=== PATIENT | female | born 1950 | race Caucasian/White ===

== ENCOUNTER 2022-05-17 17:11 | Inpatient (IN) | payer MEDICARE, OTHER ==
[~2022-05-17] VITALS: Ht 154.9 cm; Wt 73.5 kg
[2022-05-17] MEDS ORDERED: IV NS 0.9% 1,000 ML BAG IV ONE (19:30)
[2022-05-17] MEDS ORDERED: PROCHLORPERAZINE EDISYLATE 10 MG/2 ML VIAL IVP ONE (19:30)
[2022-05-17] MEDS ORDERED: MORPHINE SULFATE INJ 2 MG/ML DISP.SYRIN IV ONE (19:30)
[2022-05-17] MEDS ORDERED: diphenhydrAMINE HCL 50 MG/ML VIAL IV ONE (19:30)
--- NOTE | 2022-05-17 19:30 | NUR ---
ASSUMED CARE. PT BIBRA C/O HEADACHE X 3 DAYS. PT AAOX4 BREATHING EVENLY AND UNLABORED. PT ATTACHED TO MONITOR AND POX. SKIN WARM AND DRY. FAMILY AT BEDSIDE FOR PASHTO TRANSLATION.
--- NOTE | 2022-05-17 19:38 | NUR ---
PT TAKEN TO CT VIA [facility]
[2022-05-17] MEDS ORDERED: diphenhydrAMINE HCL 50 MG/ML VIAL ONE (19:56)
[2022-05-17] MEDS ORDERED: MORPHINE SULFATE INJ 2 MG/ML DISP.SYRIN ONE (19:56)
[2022-05-17] MEDS ORDERED: PROCHLORPERAZINE EDISYLATE 10 MG/2 ML VIAL ONE (19:56)
--- NOTE | 2022-05-17 19:56 | NUR ---
PT RETURNED TO ER BED [address]
--- NOTE | 2022-05-17 20:16 | NUR ---
PT WALKED TO RESTROOM. NEEDS MET
--- NOTE | 2022-05-17 20:27 | NUR ---
RFA #18G S/L BLOOD COLLECTED AND SENT TO LAB
[2022-05-17 20:51] LABS: CALCIUM, SERUM 9.4 mg/dL (8.5-10.1); CARBON DIOXIDE 28 mmol/L (21-32); CHLORIDE 97 mmol/L (98-107); CREATININE 0.6 mg/dL (0.6-1.3); GLUCOSE 141 mg/dL (74-106); POTASSIUM 3.5 mmol/L (3.5-5.1); SODIUM SERUM 132 mmol/L (136-145); UREA NITROGEN, BLOOD 9 mg/dL (7-18)
[2022-05-17 21:23] LABS: BASOPHILS % (AUTO) 0.3 % (0.0-2.0); EOSINOPHILS % (AUTO) 0.2 % (0.0-6.0); HEMATOCRIT 43 % (33-45); HEMOGLOBIN 14.2 g/dL (11.5-14.8); LYMPHOCYTES # (AUTO) 1.8 K/uL (0.8-4.8); LYMPHOCYTES % (AUTO) 14.7 % (20.0-44.0); MEAN CORPUSCULAR HGB CONC 33 g/dl (31.0-36.0); MEAN CORPUSCULAR VOLUME 90 fL (82-100); MONOCYTES # (AUTO) 0.5 K/uL (0.1-1.30); MONOCYTES % (AUTO) 4.2 % (2.0-12.0); NEUTROPHILS # (AUTO) 9.9 K/uL (1.8-8.9); NEUTROPHILS % (AUTO) 80.6 % (43.0-81.0); PLATELET COUNT (AUTO) 239 K/uL (150-450); RED BLOOD CELL COUNT(AUTO) 4.83 MIL/uL (4.0-5.2); WHITE BLOOD COUNT (AUTO) 12.3 K/uL (4.3-11.0)
[2022-05-17] MEDS ORDERED: KETOROLAC TROMETHAMINE 15 MG/ML VIAL ONE (22:23)
[2022-05-17] MEDS ORDERED: CLONIDINE HCL 0.1 MG TABLET ONE (22:23)
[2022-05-17] MEDS ORDERED: KETOROLAC TROMETHAMINE INJ 30 MG/ML VIAL IV ONE (22:30)
[2022-05-17] MEDS ORDERED: CLONIDINE HCL 0.1 MG TABLET PO ONE (22:30)
[2022-05-18] MEDS ORDERED: ACETAMINOPHEN 325 MG TABLET PO PRN (01:00)
[2022-05-18] MEDS ORDERED: HYDROCODONE/APAP 5/325MG TABLET PO PRN (01:00)
[2022-05-18] MEDS ORDERED: ONDANSETRON HCL/PF 4 MG/2 ML VIAL IVP PRN (01:00)
[2022-05-18] MEDS ORDERED: MAGNESIUM HYDROXIDE 30 ML UDC PO PRN (01:00)
[2022-05-18] MEDS ORDERED: TEMAZEPAM 15 MG CAPSULE PO PRN (01:00)
[2022-05-18] MEDS ORDERED: MORPHINE SULFATE INJ 2 MG/ML DISP.SYRIN IV PRN (01:00)
[2022-05-18] MEDS ORDERED: Z GUARD REMEDY 4 OZ OINT TP PRN (01:00)
[2022-05-18] MEDS ORDERED: MAG HYDROX/AL HYDROX/SIMETH 30 ML UDC PO PRN (01:00)
[2022-05-18] MEDS ORDERED: NITROGLYCERIN 0.4 MG/TAB BOTTLE SL PRN (01:00)
--- NOTE | 2022-05-18 02:12 | NUR ---
TELE: 312-2
--- NOTE | 2022-05-18 02:27 | NUR ---
REPORT GIVEN TO JENNA HO
--- NOTE | 2022-05-18 02:39 | NUR ---
JEREMY JOHNSON [phone]. PLS GIVE UPDATE ON PATIENTS STATUS. CALL ANYTIME
--- NOTE | 2022-05-18 02:45 | NUR ---
RN RECEIVING NOTE FROM ER PATIENT ARRIVED TO UNIT VIA GURNEY FROM ER - STABLE. A/OX4. NO S/S OF DISTRESS, BREATHING WITHOUT DIFFICULTY ON ROOM AIR. RFA #18 SL INTACT AND PATENT. TELE READS SR 74. SAFETY MEASURES IN PLACE: BED LOCKED AND AT LOWEST POSITION, RAILS UP X2, CALL COATES WITHIN REACH. PATIENT WAS ORIENTED TO THE UNIT. PATIENT GIVEN CALL COATES AND INSTRUCTED ON ITS USE. BELONGINGS ACCOUNTED FOR, LOGGED INTO SHEET, AND PLACED IN SHEET. TELE MONITOR APPLIED. PATIENT'S DAUGHTER ON PHONE TO AID IN COMMUNICATION. ALL QUESTIONS AND CONCERNS ADDRESSED. PATIENT STABLE; WILL CONTINUE TO MONITOR PATIENT.
--- NOTE | 2022-05-18 02:49 | NUR ---
TRANSFERRED PT TO ROOM.
[2022-05-18 04:00] VITALS: BP 130/78
[2022-05-18 04:25] VITALS: BP 130/78
--- NOTE | 2022-05-18 07:00 | NUR ---
RN OPENING NOTE PATIENT ASLEEP IN BED. A/OX4. NO S/S OF DISTRESS, BREATHING WITHOUT DIFFICULTY ON ROOM AIR. RFA #18 SL INTACT AND PATENT. TELE READS SR 75. SAFETY MEASURES IN PLACE: BED LOCKED AND IN PLACE, RAILS UP X2, CALL COATES WITHIN REACH. WILL ENDORSE TO NEXT SHIFT FOR ABY. Addendum: 05/18/22 at 0701 by GEOR[place]IA CHOPRA RN CORRECTION: RN CLOSING NOTE
--- NOTE | 2022-05-18 07:20 | NUR ---
PROPERTY SITE MANAGER OPENING NOTES RECEIVED PATIENT IN BED AWAKE, A/O X4. ABLE TO MAKE NEEDS KNOWN, NO C/O OF PAIN OR ANY DISCOMFORTS VOICED AT THIS TIME. ON ROOM AIR, TOLERATING WELL, BREATHING EVEN AND UNLABORED, NO ACUTE DISTRESS NOTED. ON TELE-MONITOR WITH CURRENT READING OF NSR, HR 76, NO C/O CARDIAC DISTRESS NOTED AT THIS TIME. SAFETY PRECAUTIONS IN PLACE: BED IN LOWEST LOCKED POSITION WITH SR UP X2, CALL LIGHT W/IN REACH. WILL CONTINUE TO MONITOR PT ACCORDINGLY.
[2022-05-18] MEDS: PANTOPRAZOLE 40 MG TABLET.DR PO SCH (07:40)
[2022-05-18 08:00] VITALS: BP 114/60
[2022-05-18] MEDS: ASPIRIN 81 MG TAB.CHEW PO SCH (08:23)
[2022-05-18] MEDS: ENOXAPARIN SODIUM 40 MG/0.4 ML DISP.SYRIN SQ SCH (08:23)
[2022-05-18] MEDS ORDERED: METF-440 PO (08:33)
[2022-05-18] MEDS ORDERED: AMLO-213 PO (08:33)
[2022-05-18] MEDS ORDERED: HYDR25TA4 PO (08:33)
[2022-05-18] MEDS ORDERED: DAPA10TA PO (08:33)
[2022-05-18] MEDS ORDERED: LIPA1CAP15 PO (08:33)
[2022-05-18] MEDS ORDERED: OMEP20CA15 PO (08:33)
[2022-05-18] MEDS ORDERED: TRAZ-252 PO (08:33)
[2022-05-18] MEDS ORDERED: PARO20TA7 PO (08:33)
[2022-05-18] MEDS ORDERED: GLIM2TAB31 PO (08:33)
[2022-05-18] MEDS ORDERED: LINA290C PO (08:33)
[2022-05-18] MEDS ORDERED: FOLI-140 PO (08:33)
[2022-05-18] MEDS ORDERED: ASPI-1420 PO (08:33)
[2022-05-18] MEDS ORDERED: ROSU10TA29 PO (08:33)
[2022-05-18] MEDS ORDERED: HYDR-4077 PO (08:33)
[2022-05-18] MEDS ORDERED: BENA40TA8 PO (08:33)
[2022-05-18 09:02] LABS: BASOPHILS % (AUTO) 0.2 % (0.0-2.0); EOSINOPHILS % (AUTO) 1.6 % (0.0-6.0); HEMATOCRIT 39 % (33-45); HEMOGLOBIN 12.7 g/dL (11.5-14.8); LYMPHOCYTES % (AUTO) 24.2 % (20.0-44.0); MEAN CORPUSCULAR HGB CONC 33 g/dl (31.0-36.0); MEAN CORPUSCULAR VOLUME 90 fL (82-100); MONOCYTES # (AUTO) 0.7 K/uL (0.1-1.30); MONOCYTES % (AUTO) 8.2 % (2.0-12.0); NEUTROPHILS # (AUTO) 5.3 K/uL (1.8-8.9); NEUTROPHILS % (AUTO) 65.8 % (43.0-81.0); PLATELET COUNT (AUTO) 225 K/uL (150-450); RED BLOOD CELL COUNT(AUTO) 4.32 MIL/uL (4.0-5.2); WHITE BLOOD COUNT (AUTO) 8.1 K/uL (4.3-11.0)
[2022-05-18 09:37] LABS: THYROID STIMULATING HORMONE 2.061 uIU/mL (0.358-3.74)
[2022-05-18 11:25] LABS: CREATININE 0.6 mg/dL (0.6-1.3); PHOSPHORUS 4.3 mg/dL (2.5-4.9); POTASSIUM 3.7 mmol/L (3.5-5.1)
[2022-05-18] MEDS: hydrALAZINE HCL 50 MG TABLET PO SCH ×2 (12:56→16:08)
[2022-05-18] MEDS ORDERED: DEXTROSE 50%-WATER 50 ML DISP.SYRIN IV PRN (15:30)
--- NOTE | 2022-05-18 15:30 | NUR ---
RN NOTES INFORMED WOOD DRILLING MACHINE OPERATOR WOLFGANG ABOUT PT'S HIGH HA1C 6.2 TODAY WITH ORDER TO DO ACCUCHECK ACHS WITH MILD SLIDING SCALE.
[2022-05-18 16:00] VITALS: BP 119/64
[2022-05-18 16:59] LABS: BILIRUBIN,URINE NEGATIVE (NEGATIVE); COLOR,URINE YELLOW (YELLOW); LEUKOCYTE ESTERASE ,URINE 2+ (NEGATIVE); NITRITE, URINE NEGATIVE (NEGATIVE); PROTEIN,URINE NEGATIVE (NEGATIVE); UGLUCOSE NEGATIVE (NEGATIVE); UROBILINOGEN,URINE 0.2 EU/dL (0.2)
[2022-05-18] MEDS: INSULIN REGULAR, HUMAN 100 UNIT/ML 3 ML VIAL SQ PRN ×2 (17:09→22:40)
[2022-05-18] MEDS: BLOOD SUGAR DIAGNOSTIC 1 EACH STRIP IN SCH ×2 (17:10→22:40)
[2022-05-18] MEDS: ATORVASTATIN 10 MG TABLET PO SCH (17:33)
[2022-05-18] MEDS: TRAZODONE 50 MG TABLET PO SCH (17:33)
--- NOTE | 2022-05-18 18:38 | NUR ---
DRAW PRESS OPERATOR CLOSING NOTES PATIENT RESTING IN BED AT THIS TIME. A/O X4. GEORGIAN AND OMANI SPEAKING, UNDERSTANDS SOME PERUVIAN. AMBULATORY WITH STEADY GAIT. ON ROOM AIR, TOLERATING WELL, BREATHING EVEN AND UNLABORED, NO ACUTE DISTRESS NOTED DURING SHIFT. ON TELE-MONITOR WITH CURRENT READING OF NSR, HR 94, NO C/O CARDIAC DISTRESS VOICED. IV ACCESS ON RFA G#18 INTACT, PATENT AND SL. ALL NEEDS AND CARE ATTENDED WELL. SAFETY PRECAUTIONS IN PLACE: BED IN LOWEST LOCKED POSITION WITH SR UP X2, TRAY TABLE AND CALL LIGHT W/IN REACH OF PT. WILL ENDORSED ABY TO RN CLINICAL TRIALS NURSE.
--- NOTE | 2022-05-18 19:50 | NUR ---
INFRASTRUCTURE TECHNICIAN OPENING NOTE PATIENT SLEEPING IN BED, EASILY AWAKENED, PATIENT ALERT/ORIENTED X 3, PRIMARILY IVORIAN SPEAKING BUT ABLE TO SPEAK SOME BULGARIAN. PT STABLE ON RA, NO S/S OF DISTRESS OR SOB NOTED, BREATHING EVEN AND UNLABORED. PATIENT ON EXTERNAL CREDIT RISK ANALYTICS MANAGER READING SINUS RHYTHM, HR: 85. IV ACCESS ON RFA #18G INTACT AND SALINE LOCKED. PER DAYSHIFT RN PATIENT IS AMBULATORY WITH STEADY GAIT, HAS BRP. SAFETY MEASURES IN PLACE: CALL LIGHT WITHIN REACH, SIDE RAILS UP X 2, BED LOCKED IN LOWEST POSITION, BED ALARM ON. WILL CONTINUE TO MONITOR PATIENT
[2022-05-18] MEDS: METOPROLOL TARTRATE 25 MG TABLET PO SCH (20:51)
[2022-05-18 21:04] LABS: BACTERIA,URINE 2+ /HPF (None Seen); RBC,URINE 0-2 /HPF (0-2); SQUAMOUS EPITHELIAL CELL,UR 0-2 /HPF (None Seen); WBC,URINE 21-50 /HPF (0-3)
[2022-05-19] VITALS: BP 115/50
[2022-05-19 04:00] VITALS: BP 97/47
[2022-05-19 06:22] LABS: BASOPHILS % (AUTO) 0.3 % (0.0-2.0); EOSINOPHILS % (AUTO) 1.9 % (0.0-6.0); HEMATOCRIT 37 % (33-45); HEMOGLOBIN 12.3 g/dL (11.5-14.8); LYMPHOCYTES # (AUTO) 1.8 K/uL (0.8-4.8); LYMPHOCYTES % (AUTO) 26.5 % (20.0-44.0); MEAN CORPUSCULAR HGB CONC 34 g/dl (31.0-36.0); MEAN CORPUSCULAR VOLUME 90 fL (82-100); MONOCYTES # (AUTO) 0.6 K/uL (0.1-1.30); MONOCYTES % (AUTO) 8.4 % (2.0-12.0); NEUTROPHILS # (AUTO) 4.3 K/uL (1.8-8.9); NEUTROPHILS % (AUTO) 62.9 % (43.0-81.0); PLATELET COUNT (AUTO) 218 K/uL (150-450); RED BLOOD CELL COUNT(AUTO) 4.07 MIL/uL (4.0-5.2); WHITE BLOOD COUNT (AUTO) 6.8 K/uL (4.3-11.0)
[2022-05-19 06:49] LABS: CALCIUM, SERUM 8.9 mg/dL (8.5-10.1); CREATININE 0.7 mg/dL (0.6-1.3); PHOSPHORUS 3.7 mg/dL (2.5-4.9); POTASSIUM 3.7 mmol/L (3.5-5.1)
--- NOTE | 2022-05-19 06:56 | NUR ---
PARTY PLAN SALES UNIT ADVISOR OPENING NOTE PATIENT AWAKE IN BED, PATIENT ALERT/ORIENTED X 3, PRIMARILY MALAGASY SPEAKING BUT ABLE TO SPEAK SOME [place]UWAITI. PT STABLE ON RA, NO S/S OF DISTRESS OR SOB NOTED, BREATHING EVEN AND UNLABORED. PATIENT ON EXTERNAL FIRST AID ATTENDANT READING SINUS RHYTHM, HR: 78. IV ACCESS ON RFA #18G INTACT AND SALINE LOCKED. PATIENT IS AMBULATORY WITH STEADY GAIT, HAS BRP. MEDICATIONS GIVEN ORDERED, PT NEEDS MET THROUGHOUT SHIFT. PATIENT FOR CTA HEART WITH 3D IMAGES TODAY, EXPLAINED BY DR. HANNAH LAST NIGHT WITH DAUGHTER JANESSA AT BEDSIDE, CONSENT SIGNED. SAFETY MEASURES IN PLACE: CALL LIGHT WITHIN REACH, SIDE RAILS UP X 2, BED LOCKED IN LOWEST POSITION, BED ALARM ON. [facility] FOR CONTINUITY OF CARE Addendum: 05/19/22 at 0657 by REESE BAR RN PARTY PLAN SALES UNIT ADVISOR CLOSING NOTE
[2022-05-19 07:00] VITALS: BP 127/74
[2022-05-19 07:00] LABS: THYROID STIMULATING HORMONE 1.243 uIU/mL (0.358-3.74)
[2022-05-19] MEDS: BLOOD SUGAR DIAGNOSTIC 1 EACH STRIP IN SCH ×4 (07:09→21:27)
[2022-05-19] MEDS: INSULIN REGULAR, HUMAN 100 UNIT/ML 3 ML VIAL SQ PRN ×4 (07:09→21:33)
--- NOTE | 2022-05-19 07:20 | NUR ---
AIRCRAFT POWERPLANT REPAIRER OPENING NOTES RECEIVED PATIENT SITTING AT SIDE OF HER BED. A/O X4. ABLE TO MAKE NEEDS KNOWN, DENIES PAIN OR ANY DISCOMFORTS VOICED AT THIS TIME. ON ROOM AIR, TOLERATING WELL, BREATHING EVEN AND UNLABORED, NO ACUTE DISTRESS NOTED. ON TELE-MONITOR WITH CURRENT READING OF NSR, HR 77, NO C/O CARDIAC DISTRESS NOTED AT THIS TIME. IV SALINE LOCKED ON RFA INTACT, PATENT AND FLUSHES WELL. SAFETY PRECAUTIONS IN PLACE: BED IN LOWEST LOCKED POSITION WITH SR UP X2, CALL LIGHT W/IN REACH. WILL CONTINUE TO MONITOR PT
[2022-05-19] MEDS: PANTOPRAZOLE 40 MG TABLET.DR PO SCH (07:21)
[2022-05-19] MEDS: AMLODIPINE BESYLATE 10 MG TABLET PO SCH (09:00)
[2022-05-19] MEDS: HYDROCHLOROTHIAZIDE 25 MG TABLET PO SCH (09:00)
[2022-05-19] MEDS: hydrALAZINE HCL 50 MG TABLET PO SCH ×3 (09:00→16:43)
[2022-05-19] MEDS: ASPIRIN 81 MG TAB.CHEW PO SCH (09:02)
[2022-05-19] MEDS: BENAZEPRIL HCL 20 MG TABLET PO SCH (09:02)
[2022-05-19] MEDS: PAROXETINE HCL 20 MG TABLET PO SCH (09:03)
[2022-05-19] MEDS: METOPROLOL TARTRATE 25 MG TABLET PO SCH ×2 (09:03→21:27)
[2022-05-19] MEDS: FOLIC ACID 1 MG TABLET PO SCH (09:03)
[2022-05-19] MEDS: ENOXAPARIN SODIUM 40 MG/0.4 ML DISP.SYRIN SQ SCH (09:10)
[2022-05-19] MEDS ORDERED: IV NS 0.9% 250 ML IV ONE ×2 (11:28→12:13)
[2022-05-19] MEDS ORDERED: CT SWABBABLE VALVE TRANS SET 1 EA INFUS.SET MC ONE (11:28)
[2022-05-19] MEDS ORDERED: IOHEXOL-350 100 ML VIAL IV ONE ×2 (11:28→12:13)
--- NOTE | 2022-05-19 11:33 | NUR ---
RN NOTES PT PICKED-UP FOR [facility] VIA WHEELCHAIR
[2022-05-19] MEDS: METOPROLOL TARTRATE INJ 5 MG/5 ML AMPUL IVP PRN ×10 (11:35→12:20)
[2022-05-19] MEDS ORDERED: METOPROLOL TARTRATE INJ 5 MG/5 ML AMPUL ONE ×3 (11:45→12:12)
[2022-05-19 12:00] VITALS: BP 104/63
[2022-05-19] MEDS ORDERED: NITROGLYCERIN 0.4 MG/TAB BOTTLE SL ONE (12:00)
--- NOTE | 2022-05-19 14:45 | NUR ---
RN NOTES PT RETURNED FROM [facility] VIA WHEELCHAIR. IV ACCESS ON RFA G#[address] ROOM. PT NOTED WITH NEW IV ACCESS ON LFA G#18 INTACT, PATENT AND FLUSHES WELL.
[2022-05-19] MEDS: ATORVASTATIN 10 MG TABLET PO SCH (17:09)
[2022-05-19] MEDS: TRAZODONE 50 MG TABLET PO SCH ×3 (17:09→17:35)
--- NOTE | 2022-05-19 17:14 | NUR ---
RN NOTES TRAZADONE 50MG TAB WASTED. MED WAS ALREADY OPENED AND PT SUDDENLY REFUSED THE MEDICATIONS STATED THAT IT MADE HER VERY SLEEPY.
--- NOTE | 2022-05-19 18:43 | NUR ---
TRAP SETTER CLOSING NOTES PATIENT IN BED AWAKE AND RESTING AT MODERATE HIGH BACKREST POSITION. A/O X4. TELUGU AND SAUDI ARABIAN SPEAKING, UNDERSTANDS SOME KITTITIAN. AMBULATORY WITH STEADY GAIT. TOLERATING ROOM AIR WELL, BREATHING EVEN AND UNLABORED, NO ACUTE DISTRESS NOTED DURING SHIFT. ON TELE-MONITOR WITH CURRENT READING OF NSR, HR 70, NO C/O CARDIAC DISTRESS VOICED. IV ACCESS ON LFA G#18 INTACT, PATENT AND SL. ALL NEEDS AND CARE ATTENDED WELL. SAFETY PRECAUTIONS IN PLACE: BED IN LOWEST LOCKED POSITION WITH SR UP X2, TRAY TABLE AND CALL LIGHT W/IN REACH OF PT. WILL ENDORSED ABY TO COMPANY TRUCK DRIVER NURSE.
--- NOTE | 2022-05-19 20:32 | NUR ---
CHEMIST INTER[employer]IP OPENING NOTES PATIENT IN BED AWAKE AND RESTING AT MODERATE HIGH BACKREST POSITION. A/O X4. ARABIC AND MALDIVIAN SPEAKING, UNDERSTANDS SOME UGANDAN. AMBULATORY WITH STEADY GAIT. TOLERATING ROOM AIR WELL, BREATHING EVEN AND UNLABORED, NO ACUTE DISTRESS NOTED DURING SHIFT. ON TELE-MONITOR WITH CURRENT READING OF NSR, HR 70, NO C/O CARDIAC DISTRESS VOICED. IV ACCESS ON LFA G#18 INTACT, PATENT AND SL. ALL NEEDS AND CARE ATTENDED WELL. SAFETY PRECAUTIONS IN PLACE: BED IN LOWEST LOCKED POSITION WITH SR UP X2, TRAY TABLE AND CALL LIGHT W/IN REACH OF PT.
[2022-05-20 00:02] VITALS: BP 124/60
[2022-05-20 04:13] VITALS: BP 128/68
--- NOTE | 2022-05-20 06:46 | NUR ---
FOREST FIRE MANAGEMENT OFFICER CLOSING NOTES PATIENT IN BED AWAKE AND RESTING A/O X4. YI AND MONTSERRATIAN SPEAKING, UNDERSTANDS SOME MACEDONIAN. AMBULATORY WITH STEADY GAIT. TOLERATING ROOM AIR WELL, BREATHING EVEN AND UNLABORED, NO ACUTE DISTRESS NOTED DURING SHIFT. ON TELE-MONITOR WITH CURRENT READING OF NSR NO C/O CARDIAC DISTRESS VOICED. IV ACCESS ON LFA G#18 INTACT, PATENT AND SL. ALL NEEDS AND CARE ATTENDED WELL. SAFETY PRECAUTIONS IN PLACE: BED IN LOWEST LOCKED POSITION WITH SR UP X2, TRAY TABLE AND CALL LIGHT W/IN REACH OF PT. WILL ENDORSE CARE TO DAY SHIFT NURSE.
--- NOTE | 2022-05-20 06:57 | NUR ---
TILE LAYER CLOSING NOTE PATIENT IN BED AWAKE AND RESTING A/O X4. ARABIC AND NIUEAN SPEAKING, UNDERSTANDS SOME NEPALI. AMBULATORY WITH STEADY GAIT. TOLERATING ROOM AIR WELL, BREATHING EVEN AND UNLABORED, NO ACUTE DISTRESS NOTED DURING SHIFT. ON TELE-MONITOR WITH CURRENT READING OF NSR NO C/O CARDIAC DISTRESS VOICED. IV ACCESS ON LFA G#18 INTACT, PATENT AND SL. ALL NEEDS AND CARE ATTENDED WELL. SAFETY PRECAUTIONS IN PLACE: BED IN LOWEST LOCKED POSITION WITH SR UP X2, TRAY TABLE AND CALL LIGHT W/IN REACH OF PT. WILL ENDORSE CARE TO DAY SHIFT NURSE.
--- NOTE | 2022-05-20 07:15 | NUR ---
MSRN Received patient in bed, alert oriented x4. Not in any form of distress. Respirations unlabored. abdomen soft, positive bowel sounds. Denies pain. To be discharged today. Will monitor patients condition. Call light within reach. All needs attended.
[2022-05-20] MEDS: BLOOD SUGAR DIAGNOSTIC 1 EACH STRIP IN SCH ×2 (07:24→13:08)
[2022-05-20] MEDS: PANTOPRAZOLE 40 MG TABLET.DR PO SCH (07:50)
[2022-05-20 08:00] VITALS: BP 133/66
[2022-05-20] MEDS: hydrALAZINE HCL 50 MG TABLET PO SCH ×2 (08:34→13:00)
[2022-05-20] MEDS: AMLODIPINE BESYLATE 10 MG TABLET PO SCH (08:35)
[2022-05-20] MEDS: FOLIC ACID 1 MG TABLET PO SCH (08:35)
[2022-05-20] MEDS: METOPROLOL TARTRATE 25 MG TABLET PO SCH (08:36)
[2022-05-20] MEDS: ASPIRIN 81 MG TAB.CHEW PO SCH (08:36)
[2022-05-20] MEDS: BENAZEPRIL HCL 20 MG TABLET PO SCH (08:36)
[2022-05-20] MEDS: HYDROCHLOROTHIAZIDE 25 MG TABLET PO SCH (08:37)
[2022-05-20] MEDS: PAROXETINE HCL 20 MG TABLET PO SCH (08:37)
[2022-05-20] MEDS: ENOXAPARIN SODIUM 40 MG/0.4 ML DISP.SYRIN SQ SCH (08:40)
--- NOTE | 2022-05-20 09:00 | NUR ---
ms ricardo breakfast served,due meds given,tolerated well.
[2022-05-20] MEDS ORDERED: METO25TA20 PO (10:55)
[2022-05-20 12:00] VITALS: BP 118/47
--- NOTE | 2022-05-20 12:45 | NUR ---
ms news intern instructions given and understood,patient went home, all needs attended.
[2022-05-20 13:00] VITALS: BP 118/47
--- NOTE | 2022-05-20 13:00 | NUR ---
ms rn patient is ready to be discharge,daughter will pick her up.
== END 2022-05-20 14:50 | disposition home or self-care (01) | DRG 206 ==
LOC: ER 17:14 → TELE 05-18 02:19
PROVIDERS: ADMIT Nurse Practitioner Acute Care; ATTEND Nurse Practitioner Acute Care
DX: M94.0 Chondrocostal junction syndrome [Tietze] (principal); E87.1 Hypo-osmolality and hyponatremia; I10 Essential (primary) hypertension; R51.9 Headache, unspecified; E11.9 Type 2 diabetes mellitus without complications; I25.10 Atherosclerotic heart disease of native coronary artery without angina pectoris; R77.8 Other specified abnormalities of plasma proteins; D72.829 Elevated white blood cell count, unspecified; Z63.4 Disappearance and death of family member; Z79.82 Long term (current) use of aspirin
CPT/HCPCS: 36415; 70450-TC; 71045-TC; 75574; 80048-TC; 80061-TC; 81001; 82962-TC; 83735-TC; 84100-TC; 84443-TC; 84484-TC; 85025-TC; 87081-TC; 87086-TC; 93307-TC; C9803; G0378; J0780; J1200; J1650; J1815; J1885; J2270; J3490; J7030; J7040; J7050; Q9967

== ENCOUNTER 2024-09-04 16:07 | Emergency (ER) | payer MEDICARE, OTHER ==
[~2024-09-04] VITALS: Ht 157.5 cm; Wt 63.5 kg
[~2024-09-04 16:07] MED LIST: AMLO-213 PO; ASPI-1420 PO; BENA40TA8 PO; DAPA10TA PO; FOLI-140 PO; GLIM2TAB31 PO; HYDR-4077 PO; HYDR25TA4 PO; LINA290C PO; LIPA1CAP15 PO; METF-440 PO; METO25TA20 PO; OMEP20CA15 PO; PARO20TA7 PO; ROSU10TA29 PO; TRAZ-252 PO
[2024-09-04] MEDS ORDERED: MORPHINE SULFATE INJ 4 MG/ML DISP.SYRIN ONE (17:05)
[2024-09-04] MEDS ORDERED: ONDANSETRON HCL/PF 4 MG/2 ML VIAL ONE (17:05)
[2024-09-04] MEDS: IV NS 0.9% 500 ML BAG IV ONE (17:22)
[2024-09-04 17:23] LABS: BASOPHILS % (AUTO) 0.4 % (0.0-2.0); EOSINOPHILS % (AUTO) 0.8 % (0.0-6.0); HEMATOCRIT 39 % (33-45); HEMOGLOBIN 13.2 g/dL (11.5-14.8); LYMPHOCYTES # (AUTO) 1.3 K/uL (0.8-4.8); LYMPHOCYTES % (AUTO) 21.8 % (20.0-44.0); MEAN CORPUSCULAR HEMOGLOBIN 30 PG (26.0-33.0); MEAN CORPUSCULAR HGB CONC 34 g/dl (31.0-36.0); MEAN CORPUSCULAR VOLUME 89 fL (82-100); MONOCYTES # (AUTO) 0.4 K/uL (0.1-1.30); MONOCYTES % (AUTO) 6.5 % (2.0-12.0); NEUTROPHILS # (AUTO) 4.2 K/uL (1.8-8.9); NEUTROPHILS % (AUTO) 70.5 % (43.0-81.0); PLATELET COUNT (AUTO) 235 K/uL (150-450); RED BLOOD CELL COUNT(AUTO) 4.35 MIL/uL (4.0-5.2); RED CELL DISTRIBUTION WIDTH 13.1 % (11.5-15.0)
[2024-09-04] MEDS: ONDANSETRON HCL/PF 4 MG/2 ML VIAL IVP ONE (17:23)
[2024-09-04] MEDS: MORPHINE SULFATE INJ 2 MG/ML DISP.SYRIN IV ONE (17:24)
[2024-09-04 17:34] LABS: CALCIUM, SERUM 9.8 mg/dL (8.5-10.1); CREATININE 0.6 mg/dL (0.6-1.3); POTASSIUM 3.7 mmol/L (3.5-5.1)
[2024-09-04 17:38] LABS: ALBUMIN 4.2 g/dL (3.4-5.0); BILIRUBIN,DIRECT 0.1 mg/dL (0.0-0.2); BILIRUBIN,TOTAL 0.4 mg/dL (0.2-1.0); TOTAL PROTEIN, SERUM 7.8 g/dL (6.4-8.2)
[2024-09-04 19:01] LABS: APPEARANCE,URINE CLEAR (CLEAR); BILIRUBIN,URINE NEGATIVE (NEGATIVE); BLOOD, URINE NEGATIVE Ery/uL (NEGATIVE); COLOR,URINE YELLOW (YELLOW); KETONES,URINE NEGATIVE (NEGATIVE); LEUKOCYTE ESTERASE ,URINE 1+ (NEGATIVE); NITRITE, URINE NEGATIVE (NEGATIVE); PH,URINE 6.5 (5.0-8.0); PROTEIN,URINE NEGATIVE (NEGATIVE); UGLUCOSE NEGATIVE (NEGATIVE); UROBILINOGEN,URINE 0.2 EU/dL (0.2)
[2024-09-04 19:14] LABS: ADD URINE CULTURE YES; BACTERIA,URINE 1+ /HPF (None Seen); RBC,URINE 0-2 /HPF (0-2); SQUAMOUS EPITHELIAL CELL,UR 0-2 /HPF (None Seen)
[2024-09-04] MEDS ORDERED: OMEP20TA20 PO (19:35)
[2024-09-04] MEDS ORDERED: SUCR1TAB31 PO (19:35)
[2024-09-04] MEDS ORDERED: CEPH-570 PO (19:39)
[2024-09-04 20:22] VITALS: BP 140/80; TEMP 98.1; O2SAT 98
== END 2024-09-04 20:23 | disposition home or self-care (01) ==
LOC: ER 16:14
DX: N39.0 Urinary tract infection, site not specified (principal); R10.11 Right upper quadrant pain; R11.2 Nausea with vomiting, unspecified; K59.00 Constipation, unspecified; I10 Essential (primary) hypertension; E11.9 Type 2 diabetes mellitus without complications; Z79.82 Long term (current) use of aspirin; Z79.84 Long term (current) use of oral hypoglycemic drugs; Z79.899 Other long term (current) drug therapy; Z60.2 Problems related to living alone
CPT/HCPCS: 99285; 74176; 76705; 71045; 93005; 85025; 80048; 87086; 83690; 80076; 81001; 36415; J7040; J2270; J2405

== ENCOUNTER 2024-09-23 06:33 | Day surgery (SDC) | payer MEDICARE, OTHER ==
[~2024-09-23 06:33] MED LIST changes: +CEPH-570 PO; +OMEP20TA20 PO; +SUCR1TAB31 PO
[2024-09-23] MEDS ORDERED: ANESTHESIA TRAY IN PYXIS 1 EA TRAY MC ONE (06:39)
[2024-09-23 07:24] LABS: INR 0.96 (0.91-1.10); PARTIAL THROMBOPLASTIN TIME 25.1 SEC (24.3-34.3); PROTHROMBIN TIME 10.2 SECS (9.2-11.1)
== END 2024-09-23 11:19 | disposition home or self-care (01) ==
LOC: DS 06:33
PROVIDERS: ATTEND Surgery
DX: R10.13 Epigastric pain (principal); K29.80 Duodenitis without bleeding; K31.7 Polyp of stomach and duodenum; K44.9 Diaphragmatic hernia without obstruction or gangrene; K29.50 Unspecified chronic gastritis without bleeding; R10.11 Right upper quadrant pain; I10 Essential (primary) hypertension; E11.9 Type 2 diabetes mellitus without complications; Z79.82 Long term (current) use of aspirin; Z79.84 Long term (current) use of oral hypoglycemic drugs; Z79.899 Other long term (current) drug therapy; Z98.890 Other specified postprocedural states
CPT/HCPCS: 36415; 43239; 82962; 85610; 85730; J0330; J2704; J3490; J7030